=== PATIENT | female | born 1995 | race Caucasian/White ===

== ENCOUNTER 2017-08-30 12:49 | Emergency (ER) | payer OTHER ==
[~2017-08-30] VITALS: Ht 157.5 cm; Wt 66.9 kg
[2017-08-30 12:59] VITALS: Ht 157.5 cm; Wt 66.9 kg
[2017-08-30] MEDS ORDERED: KETOROLAC TROMETHAMINE 30 MG/ML VIAL IV STA (13:28)
[2017-08-30] MEDS ORDERED: SODIUM CHLORIDE 0.9% 1000ML 1,000 ML IV STA ×2 (13:28→17:02)
[2017-08-30] MEDS ORDERED: DEXAMETHASONE **PF** INJ 10 MG/ML VIAL IV ONE (13:30)
--- NOTE | 2017-08-30 13:50 | EMERGENCY ROOM VISIT NOTE ---
History First contact with patient: 13:04 Chief Complaint: FEVER Stated Complaint: HIGH FEVER, HEADACHE, THROAT PAIN, BODY ACHE History of Present Illness The patient is a 22 year old female who presents to the Emergency Room with complaints of dizziness and fatigue. She states that she has been having a sore throat and fevers for the past 5 days. 2 days ago she went to [facility], and was told that she had strep throat, she was started on amoxicillin and prednisone to treat this. She states overall that she has been feeling a little better, and is no longer having any fevers. Yesterday, she states she got up and was making breakfast and she began to feel lightheaded and nauseated , states that she got herself over to a couch and sit down and then she fainted. She called the urgent care when this happened, they told her to come to the ER, however she decided to wait and see if she felt better. She states she has not had any more episodes of fainting, but still feels lightheaded and very weak/tired. She reports that her throat pain has improved. He has mild headaches and body aches intermittently. She has not been taking any other medications except for the amoxicillin and the prednisone. She denies any vision changes, severe headaches, neck pain or stiffness, chest pain, shortness of breath, vomiting, abdominal pain, back pain, diarrhea, dysuria or urinary frequency. She states that she started her period yesterday, states her periods are regular, and denies concern for . Review of Systems A complete 10 point review of systems was reviewed with the patient with pertinent positives and negatives as per history of present illness. All else were negative. Past Medical/Surgical History No significant past medical or surgical history. Social History Smoking Status: Never Smoker Alcohol Use: none Drug Use: none Marital Status: single Occupation Status: employed Current/Historical Medications Scheduled Ferrous Sulfate (Iron), 1 TAB PO DAILY Allergies No known allergies. Physical Exam Vital Signs Date Time Temp Pulse Resp B/P (MAP) Pulse Ox O2 Delivery O2 Flow Rate FiO2 08/30/17 18:19 37.0 71 16 127/81 98 08/30/17 18:10 71 16 127/81 98 Room Air 08/30/17 16:49 72 18 118/68 97 08/30/17 15:47 37.0 62 16 112/69 98 Room Air 08/30/17 14:21 77 125/88 76 120/75 69 130/75 08/30/17 14:15 78 16 109/65 97 Room Air 08/30/17 12:59 36.5 82 20 143/83 97 Room Air Physical Exam CONSTITUTIONAL: No acute distress, nontoxic appearing. Moderately dehydrated, but otherwise well appearing and well nourished. Alert and oriented X 4 with normal affect. HEENT: Normocephalic, atraumatic. Pupils equal, round and reactive to light, EOMI. TMs normal. Pharynx erythematous, moderately edematous, with white exudate. Uvula appears normal and is midline. No trismus. Dry mucous membranes. NECK: Supple, full active range of motion without discomfort. Mild anterior cervical adenopathy bilaterally, tender to palpation. No posterior adenopathy. RESPIRATORY: Clear to auscultation bilaterally with no wheezing, crackles, rhonchi or stridor. Equal expansion bilaterally. CARDIOVASCULAR: Regular rate and rhythm with no murmurs, rubs or gallops. Normal peripheral perfusion. No edema. GASTROINTESTINAL: Soft, nontender, nondistended. Bowel sounds present in all quadrants. No palpable masses or hepatosplenomegaly. MUSCULOSKELETAL: Full range of motion of all joints without discomfort. INTEGUMENTARY: No rash or other significant dermatologic conditions noted. NEUROLOGIC: Cranial nerves II-XII grossly intact. No focal neurologic deficits noted. Normal strength, normal sensation, normal speech, normal gait. Negative Romberg. Medical Decision & Procedures Laboratory Results 08/30/17 14:50 Red Blood Count 5.67, Mean Corpuscular Volume 54.1, Mean Corpuscular Hemoglobin 17.3, Mean Corpuscular Hemoglobin Concent 31.9, Mean Platelet Volume 8.8, Neutrophils (%) (Auto) 77.4, Lymphocytes (%) (Auto) 13.1, Monocytes (%) (Auto) 9.0, Eosinophils (%) (Auto) 0.0, Basophils (%) (Auto) 0.2, Neutrophils # (Auto) 7.75, Lymphocytes # (Auto) 1.31, Monocytes # (Auto) 0.90, Eosinophils # (Auto) 0.00, Basophils # (Auto) 0.02 08/30/17 14:50 Test 08/30/17 14:50 White Blood Count 10.01 K/uL (4.8-10.8) Red Blood Count 5.67 M/uL (4.2-5.4) Hemoglobin 9.8 g/dL (12.0-16.0) Hematocrit 30.7 % (37-47) Mean Corpuscular Volume 54.1 fL (80-100) Mean Corpuscular Hemoglobin 17.3 pg (25-34) Mean Corpuscular Hemoglobin Concent 31.9 g/dl (32-36) Platelet Count 331 K/uL (130-400) Mean Platelet Volume 8.8 fL (7.4-10.4) Neutrophils (%) (Auto) 77.4 % Lymphocytes (%) (Auto) 13.1 % Monocytes (%) (Auto) 9.0 % Eosinophils (%) (Auto) 0.0 % Basophils (%) (Auto) 0.2 % Neutrophils # (Auto) 7.75 K/uL (1.4-6.5) Lymphocytes # (Auto) 1.31 K/uL (1.2-3.4) Monocytes # (Auto) 0.90 K/uL (0.11-0.59) Eosinophils # (Auto) 0.00 K/uL (0-0.5) Basophils # (Auto) 0.02 K/uL (0-0.2) RDW Standard Deviation 36.1 fL (36.4-46.3) RDW Coefficient of Variation 18.8 % (11.5-14.5) Immature Granulocyte % (Auto) 0.3 % Immature Granulocyte # (Auto) 0.03 K/uL (0.00-0.02) Polychromasia 1+ Microcytosis PRESENT Target Cells 1+ Ovalocytes 1+ Echinocytes 1+ Anion Gap 9.0 mmol/L (3-11) Est Creatinine Clear Calc Drug Dose 123.5 ml/min Estimated GFR () 145.5 Estimated GFR (Non- 125.5 BUN/Creatinine Ratio 21.5 (10-20) Calcium Level 8.7 mg/dl (8.5-10.1) Human Chorionic Gonadotropin, Qual NEG (NEG) Monoscreen NEG (NEG) Medications Administered Medications (Trade) Dose Ordered Sig/Navdeep Route Start Time Stop Time Status Last Admin Dose Admin Sodium Chloride 1,000 ml @ 999 mls/hr Q1H1M STAT IV 08/30/17 13:28 11/16/17 14:28 DC 08/30/17 14:58 999 MLS/HR Dexamethasone Sodium Phosphate (Dexamethasone Inj Pf) 10 mg NOW ONCE IV 08/30/17 13:30 08/30/17 13:32 DC 08/30/17 14:57 10 MG Ketorolac Tromethamine (Toradol Inj) 15 mg NOW STAT IV 08/30/17 13:28 08/30/17 13:32 DC 08/30/17 14:57 15 MG ECG Indication: syncope Rate (beats per minute): 71 Rhythm: normal sinus Findings: no acute ischemic change, no ectopy Comparison ECG Date: no prior available Medical Decision CC: Patient presenting with complaint of lightheadedness, fatigue, sore throat Interpretation of Labs: No leukocytosis, anemia, normal platelets, no significant electrolyte abnormalities, normal renal function. Rapid strep negative, culture pending. Monospot negative. Negative . Differential Diagnosis: Includes, but not limited to viral pharyngitis, strep pharyngitis, peritonsillar abscess, mononucleosis, dehydration, electrolyte abnormalities, anemia, dysrhythmia, incidental , UTI, among others. Medication Reconciliation: I attest that I have personally reviewed the patient' s current medication list. Vital signs review: I reviewed the patient's vital signs and interpret them as follows: T: Afebrile; BP: Hypertensive; HR: Within normal limits; RR: Within normal limits; Pulse Ox: Within normal limits on room air. Blood pressure screening: The patient was found to have an elevated blood pressure, this resolved on subsequent checks of the blood pressure and was felt to be situational. Summary: Patient was evaluated at bedside, history and physical exam performed. Patient is alert and oriented, in no acute distress, resting comfortably in the stretcher. Patient does appear to be moderately dehydrated with dry skin and dry mucous membranes, and she admits that she has not been drinking as much as she should. Posterior pharynx is noted to be erythematous, edematous, and with white exudate , no trismus or uvular deviation, no muffled voice, tolerating her own secretions. I do not suspect peritonsillar abscess at this time. Orders were placed strength at bedside for labs, UA and urine , rapid strep, Monospot, IV fluids for hydration, EKG to evaluate for cardiac dysrhythmias. Patient discussed with Dr. Santillan, who agrees with my assessment and plan. Orthostatic vital signs are negative. Labs reviewed as above, notable for microcytic anemia. Rapid strep is negative. Monospot negative. EKG NSR with no acute changes. Patient reassessed multiple times throughout ED stay, she reports she is feeling much better, lightheadedness has resolved with IV fluids. UA not sent due to patient unwilling to provide a urine sample. I updated the patient all results and plan for discharge home, I encouraged her to follow closely with her PCP regarding her anemia. Rx for iron supplement was sent to pharmacy and patient was educated regarding this medication. Patient was also given return precautions should her symptoms worsen in any way , she verbalized understanding. The patient was discharged home in stable condition and ambulatory. Impression Primary Impression: Dehydration Additional Impression: Microcytic anemia Departure Information Dispostion Home / Self-Care Condition GOOD Prescriptions Ferrous Sulfate (IRON) 325 Mg Tab 1 TAB PO DAILY for 30 Days, #30 TABS Prov: Shelly Waters CRNP 08/30/17 Referrals No Doctor, Assigned (PCP) Patient Instructions ED Anemia Iron Deficiency, ED Anemia Type Not Specified, ED Dehydration, [facility] Additional Instructions You were seen in the emergency department for your sore throat and dehydration. You were also found to be anemic on your blood work today. A prescription for iron supplements (ferrous sulfate) has been sent to your pharmacy. You should start taking this once a day to help treat for possible low iron. The results of your rapid strep screen were found to be negative. You will be contacted in 48-72 hrs with the results of your pending strep culture. Since you have already been started on an antibiotic (amoxicillin), you should continue to take this as prescribed until you have completed the entire course For pain and fever control, you can use the following [id number] medicines (if >12 yo): - Regular strength (325mg/tab) Tylenol (acetaminophen) 2 tabs every 4-6 hours as needed. Do not exceed 10 tablets in a 24 hour period. Avoid taking more than 3000 mg of Tylenol per day. This includes any other sources of acetaminophen you may take on a regular basis. - Regular strength (200 mg/tab) Advil (ibuprofen) 3 tabs every 6-8 hours as needed. Do not exceed a dose of 2400 mg per day. - For best results, alternate dosing of Tylenol and Advil. In addition to your prescribed medications, you can also use the following home remedies: - Warm salt-water gargles 3 times per day can soothe your throat and help to fight infection. - Warm tea with honey can soothe your throat. Drink plenty of fluids to stay hydrated. Follow up with your primary care provider in 2-3 days from today's emergency department visit. You should also discuss further testing and treatment for your anemia. Return to the emergency department if your symptoms persist or worsen over the next 2-3 days despite treatment course outlined above. Return to the emergency department if you develop the following symptoms of: inability to swallow solids , liquids, or drool; excessive wheezing or inability to catch your breath; chest pain; severe dizziness or passing out; or continued high fevers or severe pain. Work Instructions Return To Work: 2 days Problem Qualifiers
[2017-08-30 15:01] LABS: BASO % 0.2 %; BASO ABS # 0.02 K/uL (0-0.2); HEMATOCRIT 30.7 % (37-47); IG% 0.3 %; LYMPH % 13.1 %; LYMPH ABS # 1.31 K/uL (1.2-3.4); MEAN CELL VOLUME 54.1 fL (80-100); MEAN CORPUSCULAR HEMOGLOBIN 17.3 pg (25-34); MEAN CORPUSCULAR HGB CONC 31.9 g/dl (32-36); MEAN PLATELET VOLUME 8.8 fL (7.4-10.4); NEUT % 77.4 %; PLATELET COUNT 331 K/uL (130-400); RED BLOOD COUNT 5.67 M/uL (4.2-5.4); WHITE BLOOD COUNT 10.01 K/uL (4.8-10.8)
[2017-08-30 15:21] LABS: BUN/CREATININE RATIO 21.5 (10-20); CALCIUM 8.7 mg/dl (8.5-10.1); CREATININE 0.63 mg/dl (0.60-1.20); POTASSIUM 3.7 mmol/L (3.5-5.1)
[2017-08-30 15:29] LABS: COMPLETE YES; ECHINOCYTES 1+; MICROCYTOSIS PRESENT; OVALOCYTES 1+; POLYCHROMASIA 1+; TARGET CELLS 1+
[2017-08-30] MEDS ORDERED: FERR1TAB23 PO (16:53)
[2017-08-30 18:11] LABS: PREG INTERNAL NEGATIVE QC NEG CLEAR BACKGROUND; PREG INTERNAL POSITIVE QC POS CONTROL LINE
[2017-08-30 18:19] VITALS: BP 127/81; PULSE 71; TEMP 37; O2SAT 98
== END 2017-08-30 18:19 | disposition home or self-care (01) ==
LOC: C.EDB 12:52 → C.EDA 18:19
DX: E86.0 Dehydration (principal); D50.9 Iron deficiency anemia, unspecified